=== PATIENT | female | born 1960 | race Caucasian/White ===

== ENCOUNTER → 2017-05-19 | Outpatient (CLI) | payer BC ==
--- NOTE | 2017-05-19 20:41 | CONS ---
CONSULTATION This patient is a 56-year-old lady who has been evaluated in the sleep center for possible obstructive sleep apnea-hypopnea syndrome. HISTORY OF PRESENT ILLNESS/SLEEP-WAKE EVALUATION: Patient's usual sleep schedule is from around 10:30 p.m. until 6 to 8 a.m. No problem with falling asleep. Sometimes she watches TV in the bedroom. She wakes up from sleep up to 6 times with up to 2 episodes of nocturia. She snores, has witnessed episodes of stopped breathing during sleep. She may wake up with choking, nocturia, dry mouth, panic attack, sweating. In the morning she wakes up tired, has difficulties paying attention, falling asleep during the day. [place] Sleepiness Scale is significantly increased at 17. She has problems with memory, concentration, depression, anxiety. No history of hypnagogic hallucinations, sleep paralysis or cataplexy. PAST MEDICAL HISTORY: Positive for some episodes of increasing blood pressure, usually during physical exams. PAST SURGICAL HISTORY: 1. Right knee surgery. 2. Cholecystectomy. 3. Two deliveries. REVIEW OF SYSTEMS: Menopause for 2 years. Multiple awakenings from sleep. Significant excessive daytime sleepiness. Patient may take naps any time. SOCIAL HISTORY: Negative for smoking. Alcohol consumption occasional. MEDICATIONS: None. FAMILY HISTORY: Hypertension, heart problems, stroke, snoring. PHYSICAL EXAMINATION: Pleasant lady without distress. VITAL SIGNS: BP 159/105, HR 82, RR 16, height 5 feet 6 inches, weight 200, BMI 32.2, neck 14-1/2 inches in circumference. Temperature 97.6. Oxygen saturation at room air 95%. HEENT: PERRLA, EOMI. Evaluation of oropharynx showed tongue protrudes midline;short distance between soft palate and posterior pharyngeal wall. NECK: Supple. No JVD. Thyroid is not palpable. LUNGS: Clear to percussion and to auscultation. Good air exchange. No wheezing or rhonchi. HEART: S1, S2. ABDOMEN: Slightly obese. EXTREMITIES: No clubbing or cyanosis. 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 Cranial nerves 2 to 7 intact. There is no fasciculation or atrophy noted. No focal deficits observed. IMPRESSION: 1. Snoring, witnessed episodes of stopped breathing during sleep, multiple awakenings from sleep, significant excessive daytime sleepiness, obesity; obstructive sleep apnea-hypopnea syndrome. 2. Obesity; body mass index 32.2. 3. Significant excessive daytime sleepiness. [place] Sleepiness Scale increased at 17. Differential diagnosis should include hypersomnia and narcolepsy in case sleep study is negative for obstructive sleep apnea-hypopnea syndrome. 4. Hypertension in the office. 5. Menopause with hot flashes. 6. Status post right knee surgery. 7. Status post cholecystectomy. 8. Status post 2 deliveries. PLAN: 1. Home sleep apnea test to confirm patient's abnormalities of respiration during sleep. 2. CPAP/BiPAP titration if sleep study confirms obstructive sleep apnea-hypopnea syndrome. 3. Preferable position during sleep on the side. 4. No driving if patient feels any sleepiness. Patient is aware of civil and criminal liability for unsafe driving. 5. I will see patient for follow-up visit to explain results of testing and following plan. Thank you very much for referring this patient for consultation. Sincerely, Rafael Ravi MD, PhD, FAASM Diplomat of [place] [employer] [place] [employer] Planner of [facility] [place] MMODL / IJN: [id number] /
== END ==
LOC: SLEEP 14:22
PROVIDERS: ATTEND Internal Medicine
DX: G47.33 Obstructive sleep apnea (adult) (pediatric) (principal); E66.9 Obesity, unspecified; I10 Essential (primary) hypertension; Z90.49 Acquired absence of other specified parts of digestive tract; Z78.0 Asymptomatic menopausal state; Z68.32 Body mass index [BMI] 32.0-32.9, adult
CPT/HCPCS: 99211

== ENCOUNTER → 2017-09-29 | Outpatient (CLI) | payer BC ==
--- NOTE | 2017-09-29 15:06 | SFUN ---
SLEEP CENTER FOLLOW UP NOTE DATE OF SERVICE: 09/29/2017 A 57-year-old lady who has been followed in the Sleep Center for treatment of obstructive sleep apnea-hypopnea syndrome. Recently patient had a home sleep study and CPAP titration and I discussed results of sleep studies with the patient in details. Subsequently, she was started on treatment with CPAP and today she came for the first visit after she was started on treatment with CPAP. Patient is able to use equipment every night without significant problems. She sleeps better with the machine and she feels better during the day. [place] Sleepiness Scale today is 8. I checked her CPAP unit. She used 70/77 nights and 51/77 nights for more than 4 hours. Average usage 5.2 hours. CPAP pressure is 9 cm of water. Leak is 6 L/minute which is perfect. Apnea-hypopnea index for the whole period of time is only 1.0, which is perfect. MEDICATIONS: None. PHYSICAL EXAM: Patient in no distress. BP on the right arm month 162/96, on the left arm 149/90, HR 86, RR 16, weight 208, temp 97.9, oxygen saturation at room air 96%. OROPHARYNX: Low position of soft palate. ABDOMEN: Slightly obese. Neck Supple, no JVD. Thyroid is not palpable. LUNGS Clear to percussion and to auscultation. Good air exchange. No wheezing or rhonchi. HEART S1, S2 regular. No murmurs, gallops, or rubs. EXTREMITIES No clubbing or cyanosis. 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 Cranial nerves 2 to 7 intact. There is no fasciculation or atrophy. noted. No focal deficits observed. IMPRESSION: 1. Moderate obstructive sleep apnea-hypopnea syndrome; apnea-hypopnea index 26.4 with oxygen desaturation to 78%, on full control with CPAP at 9 cm of water. Patient demonstrated borderline compliance with treatment benefitting from treatment. 2. Obesity. 3. Hypertension in the office. 4. Menopause. 5. Status post right knee surgery. 6. Status post cholecystectomy. 7. . PLAN: 1. Patient will continue to use her CPAP equipment every night for the whole night. 2. Sleep hygiene with regular time in bed for at least 8 hours. 3. No driving if feeling any sleepiness. 4. Will follow with prescription for all necessary CPAP supplies. 5. Watching and losing weight. Thank you very much for allowing me to participate in the management of your patient. Sincerely, Rafael Ravi MD, PhD, FAASM Diplomat of [place] [employer] [place] [employer] Rn Neonatal [employer]cu [facility] [place] NILE / JONATHAN: [id number] /
== END | disposition home or self-care (01) ==
LOC: SLEEP 14:09
PROVIDERS: ATTEND Internal Medicine
DX: G47.33 Obstructive sleep apnea (adult) (pediatric) (principal); E66.9 Obesity, unspecified; I10 Essential (primary) hypertension; Z78.0 Asymptomatic menopausal state; Z98.890 Other specified postprocedural states; Z90.49 Acquired absence of other specified parts of digestive tract; Z99.89 Dependence on other enabling machines and devices